=== PATIENT | male | born 1980 | race Caucasian/White ===

== ENCOUNTER 2016-12-25 18:03 | Emergency (ER) | payer OTHER ==
[~2016-12-25] VITALS: Ht 188 cm; Wt 113.4 kg
[2016-12-25 18:09] VITALS: BP 149/98
--- NOTE | 2016-12-25 20:33 | ED UPPER/LOWER EXTREMITY COMPL ---
History of Present Illness General Chief Complaint: Lower Extremity Problems Stated Complaint: SWOLLEN LT LEG Source: patient, old records Exam Limitations: no limitations Vital Signs & Intake/Output Vital Signs & Intake/Output Vital Signs Date Time Temp Pulse Resp B/P B/P Pulse O2 O2 Flow FiO2 Mean Ox Delivery Rate 12/25 2054 98 Room Air 12/25 1809 98.2 108 16 149/98 96 Room Air Allergies Coded Allergies: No Known Allergies (12/25/16) Reconcile Medications Naproxen 500 MG TABLET 1 TAB PO BID LEG SWELLING Triage Note: PT STATES HE HAS SURGERY ON HIS LEFT KNEE IN MAY AND HAD HIS KNEE DRAINED X2 SINCE THEN. PT STATES TODAY HE NOTICE SWELLING IN HIS LEFT ANKLE. PT STATES HE WAS WORKING TODAY AND WAS ON HIS FEET ALL DAY BUT IS CONCERNED. Triage Nurses Notes Reviewed? yes Onset: Evening Duration: hour(s): Timing: single episode today Severity: moderate Pain/Injury Location: Left: Foot, Ankle. No Modifying Factors: none Associated Symptoms: swelling HPI: 36-year-old male presents to urgency department complaining of swelling of the left ankle. Pt states that today he was on his feet at work, no more activity than usual, and when he returned home and took a shoes off he noticed the swelling of his left ankle and foot. He states that the swelling is painless, however he feels mild tightness in his ankle. He states that following his left meniscus repair 7 months ago he has had episodes of swelling in his knee requiring a tap however no infection at that time. He also notes that he had to increase his shoe size on the left since his surgery. He denies any recent infection, joint pain, insect bite, chest pain, dyspnea, recent immobilization, trauma to area. Past History Travel History Traveled to [place] past 21 day No Medical History Any Pertinent Medical History? see below for history Neurological: NONE EENT: NONE Cardiovascular: NONE Respiratory: NONE Gastrointestinal: NONE Hepatic: NONE Renal: NONE Musculoskeletal: left meniscal tear Psychiatric: NONE Endocrine: NONE Surgical History Surgical History: left meniscal repair Psychosocial History What is your primary language Bangladeshi Tobacco Use: Never used ETOH Use: occasional use Illicit Drug Use: denies illicit drug use Family History Hx Contributory? No Review of Systems Review of Systems Constitutional: Reports: no symptoms. Comments Review of systems: See HPI, All other systems negative. Constitutional, no chills no fever HEENT: No visual changes no sore throat no congestion, no ear pain Cardiovascular: No chest pain , no palpitation , no orthopnea Skin: no rashes, no change in skin Respiratory: No dyspnea no cough no sputum no hemoptysis GI: No nausea no vomiting : No dysuria no frequency Muscle skeletal: No joint pain, + left knee joint swelling intermittent, +left ankle and foot swelling currently, no back pain, no neck pain, Neurologic: No numbness no confusion, no headache Psych: No stress no depression,. Heme/endocrine: No bruising no bleeding Immunology: No lymphadenopathy Physical Exam Physical Exam General Appearance: well developed/nourished, no apparent distress, alert, awake Comments: Well-developed well-nourished person in no acute distress HEENT:Hearing grossly normal; EOMI. HEAD is atraumatic. moist mucous membranes. Neck: Supple, normal range of motion Back: Full range of motion Cardiovascular: Regular rate and rhythms no murmurs Respiratory: No respiratory distress. Patient speaking in full complete sentences. Breath sounds clear to auscultation bilaterally: NO W/R/R Extremity: Left lower extremity nonpitting edema localized to the ankle and foot nontender, there is no calf tenderness negative Homans sign no ecchymosis or signs of trauma the knee is atraumatic, full range of motion of extremities, normal and equal pulses bilaterally, 5 out of 5 strength noted to bilateral upper and lower extremities Neuro: Alert oriented x3, motor sensory normal, There were no obvious focal neurologic abnormalities. Skin: No appreciable rash on exposed skin, skin is warm and dry. Psych: Mood and affect is normal, memory and judgment is normal. Progress Differential Diagnosis: arterial insufficiency, cellulitis, compartment syndrome , contusion, DVT, sprain, DEPENDENT EDEMA Plan of Care: 12/25/2016 8:47:14 PM Patient sitting comfortably in chair, in no acute distress. His symptoms are consistent with dependent edema as symptoms wax and wane in severity as the day persisted he denied any symptoms when he woke up this morning. The diagnosis of DVT was considered however is a low suspicion at this time given no calf tenderness, no immobility, no trauma. Patient instructed to elevate affected leg, apply ice. He feels comfortable this plan he'll follow-up with his primary care physician and he will return with any concerns Initial ED EKG: none Departure Departure Disposition: HOME OR SELF CARE Condition: Stable Clinical Impression Primary Impression: Dependent edema Referrals: BEN PEGUERO APRN (PCP/Family) Additional Instructions: Elevate your left leg, APPLY ice, take naproxen as prescribed as needed for swelling. Consider use of compression stockings to reduce swelling of the lower leg. Return with any worsening symptoms or concerns. Departure Forms: Customer Survey General Discharge Information Prescriptions: Current Visit Scripts Naproxen 1 TAB PO BID #30 TAB
[2016-12-25] MEDS ORDERED: NAPROXEN500 M2 PO (20:49)
== END 2016-12-25 20:59 ==
LOC: ERH 18:03
DX: R60.0 Localized edema (principal)